=== PATIENT | female | born 1980 | race Caucasian/White ===

== ENCOUNTER 2019-06-17 13:24 | Emergency (ER) | payer BC, SELFPAY ==
[2019-06-17 13:33] VITALS: BP 128/81; PULSE 90; RESP 18; TEMP 37.4; O2SAT 100
--- NOTE | 2019-06-17 14:01 | ED.FEMALEGU ---
HPI - Female Genitourinary General Chief complaint: Urogenital-Female Stated complaint: Vaginal Problems Time Seen by Provider: 06/17/19 13:46 Source: patient, RN notes reviewed and old records reviewed Mode of arrival: ambulatory History of Present Illness HPI Narrative: Patient presents today complaining of an approximately 1 month history of external vaginal irritation, white vaginal discharge, pelvic pain. She was seen by her [employer]QU[employer] COMMISSIONER, Dr. Jermaine Meraz on 05/23/19. A vaginal swab was collected at that time. Report reviewed, shows no Desiree, gonorrhea, or chlamydia detected. She was possible bacterial vaginosis. Patient was subsequently treated after her doctor's appointment with a dose of Diflucan and nystatin/triamcinolone ointment. States the Diflucan helped for a few days, but symptoms returned. States she has not herself received a phone call regarding her test results. She is unable to contact her doctor. They are closed due to pandemic. MD elicited complaint: vaginal discharge Related Data Home Medications Medication Instructions Recorded Confirmed clonazepam 1 mg/kg PO DAILY 06/17/19 06/17/19 Allergies Allergy/AdvReac Type Severity Reaction Status Date / Time No Known Allergies Allergy Verified 05/23/19 12:28 Review of Systems Review of Systems: Narrative: CONSTITUTIONAL: Denies body aches, fever, chills, or sweats. EYES: Denies visual changes, redness, or discharge. ENT: Denies rhinorrhea, congestion, sore throat, or otalgia. CARDIOVASCULAR: Denies chest pain, palpitations, or edema. RESPIRATORY: Denies cough or dyspnea. GASTROINTESTINAL: Denies abdominal pain, nausea, vomiting, or diarrhea. GENITOURINARY: Denies dysuria or hematuria.+ Vaginal discharge, pelvic pain, vaginal irritation SKIN: Denies rash, itching, or wounds. MUSCULOSKELETAL: Denies back pain, joint pain, or myalgia. NEUROLOGIC: Denies headache, numbness, tingling, or weakness. PSYCH: Denies depression or anxiety. [facility] Social History Social History Smoking status: Former smoker Comments At time of signature, I have reviewed and agree with nursing past medical, surgical, social and family history unless otherwise noted. Please see nursing chart for further information. There is no relevant family history pertinent to the presenting complaint Exam Narrative: Exam Narrative: GENERAL: Well-appearing, well-nourished, and in no acute distress. HEAD: Normocephalic, atraumatic. EYES: EOMI. No redness or drainage. Conjunctivae normal. ENT: Mucous membranes pink and moist. NECK: Normal AROM. Supple. No lymphadenopathy. CHEST: No respiratory distress. Clear to auscultation. : External vulvar erythema, mild edema and excoriation. Thick white vaginal discharge noted. MUSCULOSKELETAL: No bony tenderness. EXTREMITIES: Normal range of motion. No edema. SKIN: Warm, dry, no rash. NEURO: No focal deficits. Alert and oriented x3. Gait steady. PSYCH: Normal affect. No signs of depression or anxiety. Course Vital Signs Vital signs: Vital Signs Temperature 99.3 F 06/17/19 13:33 Pulse Rate 90 06/17/19 13:33 Respiratory Rate 18 06/17/19 13:33 Blood Pressure 128/81 06/17/19 13:33 Pulse Oximetry 100 06/17/19 13:33 Temperature 99.3 F 06/17/19 13:33 Pulse Rate 90 06/17/19 13:33 Respiratory Rate 18 06/17/19 13:33 Blood Pressure 128/81 06/17/19 13:33 Pulse Oximetry 100 06/17/19 13:33 Reviewed. Pt has been instructed to follow up with her PCP regarding her elevated blood pressure today. MDM - Female Genitourinary Differential Diagnosis Differential diagnosis: Likely urinary tract infection, bacterial vaginosis, vaginitis and cystitis Medical Records Attestation: I reviewed the patient's medical records. Lab Data Attestation: I reviewed the patient's lab results. Labs: Urine Glucose Negative Reference Range: Negative
== END 2019-06-17 14:08 | disposition home or self-care (01) ==
PROVIDERS: Emergency Provider Nurse Practitioner; PCP Internal Medicine
DX: N76.0 Acute vaginitis (principal); M79.7 Fibromyalgia; N80.9 Endometriosis, unspecified
CPT/HCPCS: 81003; 99212; G0463

== ENCOUNTER 2020-12-21 08:18 | Emergency (ER) | payer BC, SELFPAY ==
[2020-12-21 08:26] VITALS: BP 152/98; PULSE 108; RESP 18; TEMP 36.4; O2SAT 100
--- NOTE | 2020-12-21 08:47 | ED.LOWEXIN ---
HPI - Extremity Injury (Lower) General Chief Complaint: Extremity Injury, Lower Stated Complaint: Hands numb,painful Time Seen by Provider: 12/21/20 08:29 History of Present Illness HPI Narrative: Patient presents with bilateral hand pain. Patient ports that is been present for the past 4 days of been intermittent. Reports to feel like her fingers are swollen reports pain on her fingertips. She notes her symptoms most in the morning pain her symptoms started after she was cleaning out cold water from a cooler. She also reports paresthesias along the ulnar aspect of her hand and forearm. Reports a history of fibromyalgia reports has not had symptoms like this before. Patient reports she is currently without symptoms Related Data Allergies Allergy/AdvReac Type Severity Reaction Status Date / Time No Known Allergies Allergy Verified 12/21/20 08:29 Review of Systems Review of Systems: CONSTITUTIONAL: Denies fever, chills, or sweats. EYES: Denies visual changes, redness, or discharge. ENT: Denies rhinorrhea, congestion, sore throat, or otalgia. CARDIOVASCULAR: Denies chest pain, palpitations, or edema. RESPIRATORY: Denies cough or dyspnea. GASTROINTESTINAL: Denies abdominal pain, nausea, vomiting, or diarrhea. GENITOURINARY: Denies dysuria or hematuria. SKIN: Denies rash or itching. MUSCULOSKELETAL: Denies back pain, joint pain, or myalgia. NEUROLOGIC: Denies headache, numbness, dizziness, or weakness. PSYCHIATRIC: Denies anxiety or depression. All systems reviewed & are unremarkable except as noted in HPI and below PMFSH Past Medical History Medical History (Updated 12/21/20 @ 08:52 by Jerome Berman MD) Anemia Anxiety Fibromyalgia Surgical History Surgical History H/O breast biopsy History of appendectomy History of endometrial ablation S/P laparoscopic hysterectomy Family History Family History Grandparent Acute myocardial infarction Sibling Diabetes mellitus Social History Social History Smoking status: Never smoker Alcohol intake: never Substance use: never Exam Narrative: GENERAL: Well-appearing, well-nourished, and in no acute distress. HEAD: Normocephalic, atraumatic. EYES: PERRLA and EOMI. ENT: Nares clear, no rhinorrhea or epistaxis. Mucous membranes moist. NECK: Supple. No masses. No JVD EXTREMITIES: Normal range of motion. No pitting edema in the bilateral hands. SKIN: Warm, dry, no rash. NEURO: No focal deficits. 5 out of 5 strength in the hand and with road patcher, abduction, opposition. Sensation intact to light touch in the bilateral hands alert and oriented x3. PSYCH: Normal mood and affect. Course Vital Signs Vital signs: Vital Signs Temperature 36.4 C 12/21/20 08:26 Pulse Rate 108 H 12/21/20 08:26 Respiratory Rate 18 12/21/20 08:26 Blood Pressure 152/98 H 12/21/20 08:26 Pulse Oximetry 100 12/21/20 08:26 Temperature 36.4 C 12/21/20 08:26 Pulse Rate 108 H 12/21/20 08:26 Respiratory Rate 18 12/21/20 08:26 Blood Pressure 152/98 H 12/21/20 08:26 Pulse Oximetry 100 12/21/20 08:26 MDM - Extremity Injury (Lower) MDM Narrative Medical decision making narrative: H&P as above, vss, pt looks clinically well, exam without deformity or focal neurological compromise, labs/img considered. symptomatic relief available as needed, on reevaluation pt continues to looks clinically well. Symptoms remain of unclear etiology there is no trauma so there is low concern for fracture or dislocation. Exam is reassuring low concern for major neurovascular compromise. Symptoms may represent new onset Raynaud's versus ulnar nerve pathology, with a reassuring exam patient is appropriate for continued outpatient monitoring and work-up with primary care doctor. plan to tx/monitor as op w/ pcm f/u findings/plan di
== END 2020-12-21 09:07 | disposition home or self-care (01) ==
PROVIDERS: Emergency Provider Emergency Medicine; PCP Internal Medicine
DX: R20.2 Paresthesia of skin (principal); M79.7 Fibromyalgia; Z86.2 Personal history of diseases of the blood and blood-forming organs and certain disorders involving the immune mechanism
CPT/HCPCS: 99281

== ENCOUNTER 2021-07-06 10:24 | Emergency (ER) | payer BC, SELFPAY ==
--- NOTE | ~2021-07-06 | XR_ITS ---
EXAMINATION: XR lumbar spine 2-3V EXAM DATE: 07/06/2021 10:58 INDICATION: Midline ttp for 4 days. ttp on t-11 and t-12 . TECHNIQUE: Lumber spine frontal, lateral, lateral L5-S1 projections for interpretation. Comparison is made to prior examination from 06/17/2018. FINDINGS: Mild disc disease at T12-L1 and L1-2. Mild diffuse loss of the L1 vertebral body height, mi ld chronic compression appears unchanged. Mild lower lumbar facet arthropathy. There are no acute fra ctures identified. The vertebral bodies are aligned in the AP dimension. Paraspinal soft tissue is un remarkable. Sacrum, sacroiliac joints, sacral arcuate lines are intact. There is no significant inter milvia change. IMPRESSION: Mild chronic L1 compression and thoracolumbar disc disease. No acute findings. Reviewed, dictated and finalized at location A. IMPRESSION: Mild chronic L1 compression and thoracolumbar disc disease. No acut e findings.
[2021-07-06 10:31] VITALS: BP 139/88; PULSE 102; RESP 16; TEMP 37.6; O2SAT 100
--- NOTE | 2021-07-06 10:55 | PC.NURSE ---
Pt in X ray at this time
[2021-07-06] MEDS: KETOROLAC 30 MG/ML VIAL (*BKC) IM (10:57)
[2021-07-06] MEDS: CYCLOBENZAPRINE HCL 10 MG TABLET PO (10:59)
--- NOTE | 2021-07-06 11:11 | ED.BACK ---
HPI - Back Pain/Injury General Chief Complaint: Back Pain/Injury Stated Complaint: back pain Time Seen by Provider: 07/06/21 10:26 Source: patient History of Present Illness HPI Narrative: Patient presents with back pain. Reports she struck her back on the armrest a few days ago over the next few days she has had increasing pain this morning she is having a hard time moving so she came to the ER for evaluation. Her pain is primarily in her upper lower back radiates bilaterally is achy, constant, worse with any sort of movement of the torso. Denies any bowel or bladder incontinence denies any focal numbness or weakness. She denies any recent spinal instrumentation, major changes in weight, IV drug use. Related Data Allergies Allergy/AdvReac Type Severity Reaction Status Date / Time No Known Allergies Allergy Verified 07/06/21 10:35 Review of Systems Review of Systems: CONSTITUTIONAL: Denies fever, chills, or sweats. EYES: Denies visual changes, redness, or discharge. ENT: Denies rhinorrhea, congestion, sore throat, or otalgia. CARDIOVASCULAR: Denies chest pain, palpitations, or edema. RESPIRATORY: Denies cough or dyspnea. GASTROINTESTINAL: Denies abdominal pain, nausea, vomiting, or diarrhea. GENITOURINARY: Denies dysuria or hematuria. SKIN: Denies rash or itching. MUSCULOSKELETAL: Denies joint pain, or myalgia. NEUROLOGIC: Denies headache, numbness, dizziness, or weakness. PSYCHIATRIC: Denies anxiety or depression. All systems reviewed & are unremarkable except as noted in HPI and below PMFSH Past Medical History Medical History (Updated 07/06/21 @ 11:33 by Jerome Berman MD) Anemia Anxiety Fibromyalgia Surgical History Surgical History H/O breast biopsy History of appendectomy History of endometrial ablation S/P laparoscopic hysterectomy Family History Family History Grandparent Acute myocardial infarction Sibling Diabetes mellitus Social History Social History Smoking status: Never smoker Alcohol intake: never Substance use: never Exam Narrative: GENERAL: Well-appearing, well-nourished, and in no acute distress. HEAD: Normocephalic, atraumatic. EYES: PERRLA and EOMI. ENT: Nares clear, no rhinorrhea or epistaxis. Mucous membranes moist. NECK: Supple. No masses. No JVD ABDOMEN: Soft, nontender, nondistended, normal active bowel sounds. BACK: Midline tenderness noted along spinous process T11 and T12 there is otherwise diffuse tenderness to the lower back. There is no obvious deformity or step-offs no open or draining wounds no ecchymoses. EXTREMITIES: Normal range of motion. No edema. SKIN: Warm, dry, no rash. NEURO: No focal deficits. 2+ knee reflexes symmetric bilaterally alert and oriented x3. PSYCH: Normal mood and affect. Course Reevaluation(s) Reevaluation #1: Patient with some improvement in her symptoms after Toradol. Results reviewed with patient. Patient is comfortable outpatient plan. Date: 07/06/21 Time: 11:31 Vital Signs Vital signs: Vital Signs Temperature 37.6 C H 07/06/21 10:31 Pulse Rate 102 H 07/06/21 10:31 Respiratory Rate 16 07/06/21 10:31 Blood Pressure 139/88 07/06/21 10:31 Pulse Oximetry 100 07/06/21 10:31 Temperature 37.6 C H 07/06/21 10:31 Pulse Rate 81 07/06/21 11:53 Respiratory Rate 16 07/06/21 11:53 Blood Pressure 117/67 07/06/21 11:53 Pulse Oximetry 100 07/06/21 11:53 MDM - Back Pain/Injury MDM Narrative Medical decision making narrative: H&P as above, vss, pt looks clinically well, exam without focal neurological deficits there is midline tenderness, imaging without acute process, additional labs/img considered, symptomatic relief available as needed, on reevaluation pt continues to looks clinically well. Suspect exacerbation of mild disc disease from inj
[2021-07-06 11:53] VITALS: BP 117/67; PULSE 81; RESP 16; O2SAT 100
== END 2021-07-06 11:53 | disposition home or self-care (01) ==
PROVIDERS: Emergency Provider Emergency Medicine; PCP Internal Medicine
DX: S39.92XA Unspecified injury of lower back, initial encounter (principal); Z86.2 Personal history of diseases of the blood and blood-forming organs and certain disorders involving the immune mechanism; M79.7 Fibromyalgia; M51.9 Unspecified thoracic, thoracolumbar and lumbosacral intervertebral disc disorder; W22.8XXA Striking against or struck by other objects, initial encounter
CPT/HCPCS: 72100; 96372; 99283; A9270; J1885

== ENCOUNTER 2022-05-16 07:58 | Outpatient (CLI) | payer BC, SELFPAY ==
--- NOTE | ~2022-05-16 | US_ITS ---
EXAMINATION: US pelvic complete w TV DATE: 05/16/2022 08:55 INDICATION: Pelvic and perineal pain, history of hysterectomy and right oophorectomy TECHNIQUE: Multiple transabdominal and endovaginal sonographic images of the pelvis were obtained. COMPARISON: None. FINDINGS: The uterus is surgically absent. The right ovary is surgically absent. No right adnexal abn ormality is seen. The left ovary measures 2.9 x 2.3 x 3.4 cm. There is normal vascular flow in the le ft ovary. There is no free fluid in the pelvis. IMPRESSION: 1. No sonographic correlate for the patient's symptoms. Reviewed, dictated and finalized at location B. ITUTION LIBRARIAN
--- NOTE | ~2022-05-16 | MMUS_ITS ---
EXAMINATION: MM diagnostic quan BI w maddie, US breast BI complete HISTORY: Intermittent left breast lump for 2 months. Patient could not feel the lump today. TECHNIQUE: ML, MLO and CC 3-D tomosynthesis images of both breasts were performed and synthetic 2-D i mages were generated. CAD analysis was submitted and interpreted. High resolution complete bilateral breast ultrasound examination including all 4 quadrants and subareolar areas was performed. COMPARISON: None BREAST PARENCHYMAL COMPOSITION: The breasts are heterogeneously dense, which may obscure small masses . FINDINGS: MAMMOGRAPHIC FINDINGS: No suspicious mass or architectural distortion, malignant calcification, skin thickening or retractio n is detected. The heterogeneously dense stroma may obscure breast masses. Bilateral complete breast ultrasound exam ination was performed. ULTRASOUND: Right breast: No suspicious mass or shadowing, cyst or other sylvian sonographic abnormality of the r ight breast. Left breast: There is a parallel circumscribed relatively sonolucent area measuring approximately 2.3 mm depth by 8 x 10 mm, without internal vascularity or posterior shadowing, benign in appearance. No suspicious mass or shadowing of the left breast or other significant sonographic finding. IMPRESSION: 1. No mammographic evidence of malignancy 2. Routine mammographic screening is recommended. BI-RADS Category 2: Benign finding(s). Reviewed, dictated and finalized at location A. SION PHARMACIST IMPRESSION: 1. No mammographic evidence of malignancy 2. Routine mammographic screening is recommended. BI-RADS Category 2: Benign finding(s).
== END 2022-05-16 07:59 ==
LOC: MICIMG 08:00
PROVIDERS: Visit Provider Obstetrics & Gynecology
DX: R10.2 Pelvic and perineal pain (principal); N63.20 Unspecified lump in the left breast, unspecified quadrant; R92.2 Inconclusive mammogram
CPT/HCPCS: 76641; 76830; 76856; 77062; 77066; G0279

== ENCOUNTER 2022-08-05 10:31 | Emergency (ER) | payer BC, SELFPAY ==
[2022-08-05 10:33] VITALS: BP 151/94; RESP 16; TEMP 36.3; O2SAT 100
--- NOTE | 2022-08-05 10:36 | ECG_ITS ---
Measurements Intervals [place] Rate: 82 P: 63 MA: 159 QRS: 37 QRSD: 90 T: 34 QT: 357 QTc: 419 Interpretive Statements SINUS RHYTHM POSSIBLE LEFT ATRIAL ENLARGEMENT INCOMPLETE RIGHT BUNDLE BRANCH BLOCK BORDERLINE ECG NO PREVIOUS ECG AVAILABLE FOR COMPARISON Electronically Signed On 08-05-2022 11:54:33 CDT by Bruno Reid D.O.
--- NOTE | 2022-08-05 12:08 | ED.NECK ---
HPI - Neck Pain/Injury General Chief Complaint: Neck Pain/Injury Stated Complaint: Body Ache Time Seen by Provider: 08/05/22 11:44 History of Present Illness HPI Narrative: This is a 41-year-old female who denies significant past medical history, presenting to the emergency department complaining of left-sided neck pain and muscle spasm for the past day. The patient states she lifts boxes regularly for work. She denies any recent trauma. She complains of primarily left side neck pain, described as cramping and rated 6/10. She denies weakness or numbness in the arm Related Data Allergies Allergy/AdvReac Type Severity Reaction Status Date / Time No Known Allergies Allergy Verified 08/05/22 11:06 Review of Systems Review of Systems: CONSTITUTIONAL: Denies fever, chills, or sweats. CARDIOVASCULAR: Denies chest pain, palpitations, or edema. RESPIRATORY: Denies cough or dyspnea. GASTROINTESTINAL: Denies abdominal pain, nausea, vomiting, or diarrhea. GENITOURINARY: Denies dysuria or hematuria. MUSCULOSKELETAL: Left-sided neck pain denies back pain, joint pain, or myalgia. NEUROLOGIC: Denies headache, numbness, dizziness, or weakness. PSYCHIATRIC: Denies anxiety or depression. [facility] Past Medical History Medical History Anemia Anxiety Fibromyalgia Surgical History Surgical History H/O breast biopsy History of appendectomy History of section History of endometrial ablation S/P laparoscopic hysterectomy Family History Family History Grandparent Acute myocardial infarction Sibling Diabetes mellitus Social History Social History Smoking status: Unknown if ever smoked Alcohol intake: current Alcohol use details: Rare Substance use: never Lack of Transportation: No Lack of Food: Never True Current Housing: I Have Housing Concerned About Future Housing: No Difficulty Paying Gas/Electric Bills: No Difficulty Paying for Meds: No Currently Unemployed: No Living arrangements: with family Occupation/Education: occupation Gender identity (if verbalized by the patient): Female Sexual Orientation (if Verbalized by the Patient): Straight or Heterosexual Spiritual care concerns: No Exam Narrative: GENERAL: Well-developed, well-nourished, and in no acute distress. HEAD: Normocephalic, atraumatic. EYES: PERRLA and EOMI. NECK: Paraspinal muscle spasm, extending to the left trapezius. ROM intact though slowed by pain No adenopathy or masses. No carotid bruits or JVD. No midline spine tenderness to palpation, no step-off or crepitus CHEST: Clear to auscultation. No respiratory distress. No wheezes rales or rhonchi HEART: Regular rate and rhythm. No murmur heard. Normal peripheral pulses. ABDOMEN: Soft, nontender, nondistended, normal active bowel sounds. EXTREMITIES: Normal range of motion. No edema. SKIN: Warm, dry, no rash. NEURO: No focal deficits. Alert and oriented x3. Strength 5/5 in all extremities, sensation intact bilaterally PSYCH: Normal mood and affect. Course Course Emergency Course: 12:08 - The patient's exam is not concerning for midline spine injury. Her exam is consistent with muscle spasm. We will treat with topical lidocaine, muscle relaxers and discharged with primary care follow-up. Discussed return and emergent precautions including signs/symptoms of neurovascular compromise. Patient voiced understanding and is comfortable with the plan. All questions answered to her satisfaction. Vital Signs Vital signs: Vital Signs Temperature 97.3 F L 08/05/22 10:33 Respiratory Rate 16 08/05/22 10:33 Blood Pressure 151/94 H 08/05/22 10:33 Pulse Oximetry 100 08/05/22 10:33 Oxygen Delivery Room Air 08/05/22 10:33 [place]
[2022-08-05] MEDS: ACETAMINOPHEN 500 MG TABLET 1000 MG PO (12:11)
[2022-08-05] MEDS: LIDOCAINE 5% PATCH 1 PATCH TRANSDERM (12:12)
[2022-08-05] MEDS: CYCLOBENZAPRINE HCL 5 MG TABLET PO (12:12)
[2022-08-05 12:19] VITALS: PULSE 74; RESP 16; O2SAT 99
== END 2022-08-05 12:20 | disposition home or self-care (01) ==
PROVIDERS: Emergency Provider Preventive Medicine Aerospace Medicine
DX: M54.2 Cervicalgia (principal); M62.838 Other muscle spasm; Z90.710 Acquired absence of both cervix and uterus
CPT/HCPCS: 93005; 99283; A9270

== ENCOUNTER 2022-10-14 07:55 | Emergency (ER) | payer OTHER, BC, SELFPAY ==
--- NOTE | ~2022-10-14 | CT_ITS ---
CT of the Abdomen and Pelvis: Indication: Abdominal pain Technique: 2.5 mm axial scans were obtained through the abdomen and pelvis following intravenous adm inistration of 100 cc of Omnipaque 350. Dose reduction technique was used on this scan by utilizing a utomated exposure control and iterative reconstruction technique. The dose-length product (DLP) was 4 44.76 mGy-cm. Findings: Scans through the lung bases are unremarkable. The liver, spleen, pancreas, gallbladder, adrenals and kidneys are within normal limits. No evidence of aortic aneurysm. No lymphadenopathy. No bowel obstruction or bowel wall thickening. There is no evidence to suggest acute appendicitis. Images through the pelvis were performed. Urinary bladder unremarkable. 1.7 cm left ovarian cyst is o f doubtful clinical significance. No other adnexal mass seen. No ascites. Impression: No significant abnormalities seen. Reviewed, dictated and finalized at [facility]. Impression: No significant abnormalities seen.
[2022-10-14 07:58] VITALS: BP 134/88; PULSE 88; RESP 14; TEMP 37.3; O2SAT 100
[2022-10-14 08:26] LABS: Basophils Percent Auto 0.4 % (0.2-1.2); Eosinophils Absolute Auto 0.1 K/mm3 (0-0.3); Eosinophils Percent Auto 1.5 % (0-4.4); Hematocrit 38.6 % (37.0-47.0); Hemoglobin 12.3 g/dL (12.0-15.0); Immature Granulocyte Absolute 0.01 K/mm3 (0.00-0.031); Immature Granulocyte Percent A 0.2 % (0-0.5); Lymphocytes Absolute Auto 1.24 K/mm3 (0.9-3.2); Lymphocytes Percent Auto 27.4 % (18.3-44.2); Mean Corpuscular HGB Conc 31.9 g/dl (32-36); Mean Corpuscular Hemoglobin 26.5 pg (26-34); Mean Corpuscular Volume 83.2 fl (80-100); Mean Platelet Volume 8.7 fl (7.4-10.4); Monocytes Absolute Auto 0.6 K/mm3 (0.1-0.6); Monocytes Percent Auto 12.1 % (2.6-8.5); Neutrophils Absolute Auto 2.6 K/mm3 (1.3-6.7); Neutrophils Percent Auto 58.4 % (45.5-73.1); Platelet Count Result 191 k/mm3 (150-375); Red Blood Count 4.64 M/mm3 (4.2-5.4); Red Cell Distribution Width 15.8 % (11.5-14.5); White Blood Count 4.5 K/mm3 (4.5-10.0)
[2022-10-14 08:31] VITALS: BP 129/90; PULSE 84; RESP 14
[2022-10-14 08:32] LABS: Alanine Aminotransferase 18 U/L (6-35); Albumin Level 4.1 g/dL (3.5-5.1); Alkaline Phosphatase 54 U/L (38-126); Anion Gap 5 mmol/L (8-16); Aspartate Amino Transferase 24 U/L (14-36); Bilirubin,Total 0.8 mg/dL (0.2-1.3); Blood Urea Nitrogen 12 mg/dL (7-17); Calcium 8.5 mg/dL (8.4-10.2); Carbon Dioxide 27 mmol/L (22-30); Chloride 107 mmol/L (98-107); Estimated CRCL calculation 85 ml/min; Estimated Glomerular Filt Rate > 60; Glucose 101 mg/dL (65-110); Potassium 3.6 mmol/L (3.4-5.0); Sodium 139 mmol/L (137-145)
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
[2022-10-14] MEDS: KETOROLAC 15 MG/ML VIAL (*BKC) IV PUSH (09:34)
[2022-10-14 09:35] VITALS: BP 131/92; PULSE 79; RESP 16; O2SAT 100
== END 2022-10-14 09:50 | disposition home or self-care (01) ==
PROVIDERS: Emergency Provider Emergency Medicine; PCP Family Medicine
DX: M79.7 Fibromyalgia (principal); Z86.2 Personal history of diseases of the blood and blood-forming organs and certain disorders involving the immune mechanism; Z90.710 Acquired absence of both cervix and uterus; Z87.891 Personal history of nicotine dependence; V47.5XXA Car driver injured in collision with fixed or stationary object in traffic accident, initial encounter
CPT/HCPCS: 36415; 74177; 80053; 85025; 96374; 99284; J1885; Q9967

== ENCOUNTER 2022-11-07 09:09 | Outpatient (CLI) | payer OTHER, SELFPAY ==
[2022-11-07 18:14] LABS: Basophils Percent Auto 0.7 % (0.2-1.2); Eosinophils Percent Auto 0.9 % (0-4.4); Hematocrit 40.7 % (37.0-47.0); Hemoglobin 12.8 g/dL (12.0-15.0); Immature Granulocyte Absolute 0.01 K/mm3 (0.00-0.031); Immature Granulocyte Percent A 0.2 % (0-0.5); Lymphocytes Absolute Auto 1.07 K/mm3 (0.9-3.2); Lymphocytes Percent Auto 25.1 % (18.3-44.2); Mean Corpuscular HGB Conc 31.4 g/dl (32-36); Mean Corpuscular Hemoglobin 26.6 pg (26-34); Mean Corpuscular Volume 84.6 fl (80-100); Mean Platelet Volume 9.7 fl (7.4-10.4); Monocytes Absolute Auto 0.6 K/mm3 (0.1-0.6); Monocytes Percent Auto 12.9 % (2.6-8.5); Neutrophils Absolute Auto 2.6 K/mm3 (1.3-6.7); Neutrophils Percent Auto 60.2 % (45.5-73.1); Platelet Count Result 180 k/mm3 (150-375); Red Blood Count 4.81 M/mm3 (4.2-5.4); Red Cell Distribution Width 15.2 % (11.5-14.5); White Blood Count 4.3 K/mm3 (4.5-10.0)
[2022-11-07 18:28] LABS: Alanine Aminotransferase 15 U/L (6-35); Albumin Level 4.3 g/dL (3.5-5.1); Alkaline Phosphatase 52 U/L (38-126); Anion Gap 8 mmol/L (8-16); Aspartate Amino Transferase 22 U/L (14-36); Bilirubin,Total 0.6 mg/dL (0.2-1.3); Blood Urea Nitrogen 13 mg/dL (7-17); Calcium 8.7 mg/dL (8.4-10.2); Carbon Dioxide 26 mmol/L (22-30); Chloride 105 mmol/L (98-107); Cholesterol 162 mg/dL (0-200); Estimated Glomerular Filt Rate > 60; Glucose 97 mg/dL (65-110); HDL Direct 62 mg/dL; Potassium 4.3 mmol/L (3.4-5.0); Sodium 139 mmol/L (137-145); Triglycerides 33 mg/dL (<150)
[2022-11-07 18:33] LABS: Hemoglobin A1C 5.6 % (<5.7)
[2022-11-07 18:34] LABS: Iron 73 ug/dL (37-170)
[2022-11-07 18:40] LABS: LDL Cholesterol Direct 83 mg/dL
[2022-11-07 18:48] LABS: Percent Iron Saturation 18 % (20-50)
[2022-11-07 19:12] LABS: Ferritin 4.99 ng/mL (6.24-137)
[2022-11-07 19:37] LABS: Folic Acid 11.2 ng/mL (2.76->20)
== END 2022-11-07 09:10 | disposition home or self-care (01) ==
LOC: ANHGOSHLAB 09:11
PROVIDERS: PCP Family Medicine; Visit Provider Family Medicine
DX: Z13.220 Encounter for screening for lipoid disorders (principal); R53.83 Other fatigue; D50.9 Iron deficiency anemia, unspecified; Z13.228 Encounter for screening for other metabolic disorders; Z13.29 Encounter for screening for other suspected endocrine disorder; R73.9 Hyperglycemia, unspecified
CPT/HCPCS: 36415; 80053; 80061; 82607; 82728; 82746; 83036; 83540; 83550; 84443; 85025

== ENCOUNTER 2022-11-14 18:16 | Emergency (ER) | payer BC, SELFPAY ==
--- NOTE | ~2022-11-14 | CT_ITS ---
EXAMINATION: CT abdomen pelvis w con DATE: 11/14/2022 22:50 INDICATION: abdominal pain TECHNIQUE: Computed tomography (CT) of the abdomen and pelvis was performed with 100 mL Omnipaque-350 intravenous contrast. Automated exposure control and iterative reconstruction technique were employe d. The dose-length product was 474.14 mGy-cm. COMPARISON: 10/14/2022. FINDINGS: Lower thorax: Unremarkable Liver: Periportal edema. Biliary/Gallbladder: Cholelithiasis. No bile duct dilation. Pancreas: No mass or duct dilation. Spleen: Normal. Adrenals:No mass. Kidneys: No mass, stone, or hydronephrosis. GI tract: Moderate distal esophageal and gastric wall edema. No small or large bowel dilation. The ap pendix is not confidently identified. Mesentery/Peritoneum: No ascites, mass, or free air. Retroperitoneum: No mass. Pelvis: Absent uterus. Marked urinary bladder wall edema. Soft Tissues: Soft tissues and body wall unremarkable. Bones: No acute osseous finding. IMPRESSION: Moderate esophagitis/gastritis. Severe cystitis. Reviewed, dictated and finalized at location K.
[2022-11-14 18:25] VITALS: BP 154/96; PULSE 101; RESP 21; TEMP 37.1; O2SAT 99
[2022-11-14 18:40] LABS: Basophils Percent Auto 0.3 % (0.2-1.2); Eosinophils Percent Auto 0.5 % (0-4.4); Hematocrit 38.9 % (37.0-47.0); Hemoglobin 12.3 g/dL (12.0-15.0); Immature Granulocyte Absolute 0.02 K/mm3 (0.00-0.031); Immature Granulocyte Percent A 0.3 % (0-0.5); Lymphocytes Absolute Auto 1.35 K/mm3 (0.9-3.2); Lymphocytes Percent Auto 17.7 % (18.3-44.2); Mean Corpuscular HGB Conc 31.6 g/dl (32-36); Mean Corpuscular Hemoglobin 27.2 pg (26-34); Mean Corpuscular Volume 85.9 fl (80-100); Mean Platelet Volume 8.3 fl (7.4-10.4); Monocytes Absolute Auto 0.7 K/mm3 (0.1-0.6); Monocytes Percent Auto 8.7 % (2.6-8.5); Neutrophils Absolute Auto 5.5 K/mm3 (1.3-6.7); Neutrophils Percent Auto 72.5 % (45.5-73.1); Platelet Count Result 224 k/mm3 (150-375); Red Blood Count 4.53 M/mm3 (4.2-5.4); Red Cell Distribution Width 15.4 % (11.5-14.5); White Blood Count 7.6 K/mm3 (4.5-10.0)
[2022-11-14 18:54] LABS: Alanine Aminotransferase 17 U/L (6-35); Albumin Level 4.2 g/dL (3.5-5.1); Alkaline Phosphatase 55 U/L (38-126); Anion Gap 5 mmol/L (8-16); Aspartate Amino Transferase 21 U/L (14-36); Bilirubin,Total 0.4 mg/dL (0.2-1.3); Blood Urea Nitrogen 11 mg/dL (7-17); Calcium 8.9 mg/dL (8.4-10.2); Carbon Dioxide 26 mmol/L (22-30); Chloride 106 mmol/L (98-107); Estimated CRCL calculation 84 ml/min; Estimated Glomerular Filt Rate > 60; Glucose 113 mg/dL (65-110); Lipase 161 U/L (23-300); Potassium 3.4 mmol/L (3.4-5.0); Sodium 137 mmol/L (137-145)
[2022-11-14 19:13] LABS: Bacteria Urine 1+ /hpf; Need Manual Microscopic Reviewed; Non Pathogenic Casts 0-2; RBC Urine >100 /hpf (0-2); Squamous Epithelial Cell Urine None seen /hpf (Few); WBC Urine >100 /hpf
[2022-11-14 19:16] LABS: Appearance Urine Turbid (Clear); Bilirubin Urine 1+ (Negative); Blood Urine 3+ (Negative); Glucose Urine UA Negative (Negative); Ketones Urine Negative (Negative); Leukocyte Esterase Ur 2+ LEU/UL (Negative); Nitrate Urine Positive (Negative); Protein Urine 2+ mg/dL (Negative); Specific Grav Ur 1.021 (1.001-1.035); pH Urine 5.5 (5.0-9.0)
[2022-11-14 19:17] LABS: Color Urine Dark Yellow (Yellow)
[2022-11-14 19:23] LABS: Add Urine Microscopic? YES
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
[2022-11-14] MEDS: SODIUM CHLORIDE 0.9% IV 1,000 ML 999 ML IV CONT (21:31)
[2022-11-14] MEDS: HYDROmorphone HCL INJ (*CRX) 1 MG/ML SYR 0.5 MG IV PUSH (23:25)
[2022-11-14] MEDS: PHENAZOPYRIDINE HCL 100 MG TABLET 200 MG PO (23:25)
[2022-11-15 00:01] VITALS: BP 142/78; PULSE 89; RESP 17; O2SAT 99
== END 2022-11-15 02:09 | disposition home or self-care (01) ==
PROVIDERS: Emergency Provider Emergency Medicine
DX: N30.90 Cystitis, unspecified without hematuria (principal); M79.7 Fibromyalgia; Z86.2 Personal history of diseases of the blood and blood-forming organs and certain disorders involving the immune mechanism; Z90.710 Acquired absence of both cervix and uterus; Z87.891 Personal history of nicotine dependence; K29.70 Gastritis, unspecified, without bleeding; K20.90 Esophagitis, unspecified without bleeding; R10.30 Lower abdominal pain, unspecified
CPT/HCPCS: 36415; 74177; 80053; 81001; 81025; 83690; 85025; 87077; 87086; 87186; 96365; 96375; 99284; A9270; J0696; J1170; J7030; Q9967

== ENCOUNTER 2023-01-18 20:51 | Emergency (ER) | payer BC, SELFPAY ==
--- NOTE | ~2023-01-18 | CT_ITS ---
Non-contrast Head CT History: Headache Technique: Axial non-contrast imaging of the brain was performed. Dose reduction technique was used on this scan by utilizing automated exposure control and iterative reconstruction technique. The dose -length product (DLP) was 605.33 mGy-cm. Findings: There is no evidence of intracranial hemorrhage, mass lesion, or acute infarct. Brain par enchyma appears normal. The ventricles and subarachnoid spaces are normal in size. The calvarium ap pears normal. The visualized paranasal sinuses and mastoid air cells are clear. Impression: No significant abnormality seen. Reviewed, dictated and finalized at location . Impression: No significant abnormality seen.
[2023-01-18 20:59] VITALS: BP 153/99; PULSE 100; RESP 18; TEMP 37; O2SAT 100
--- NOTE | 2023-01-18 21:19 | ED.HA ---
HPI - Headache General Chief Complaint: Headache Stated Complaint: headache Time Seen by Provider: 01/18/23 21:00 Source: patient Mode of arrival: ambulatory Limitations: no limitations History of Present Illness HPI Narrative: This is a 42 year old female that presents to the ER for a headache. Ongoing over the last couple of days. Associated with nausea, vomiting, myalgias. Does report sick contacts at work. She took an anti-inflammatory an hour prior to arrival. Denies fever, visual changes, cough, congestion, abdominal pain, dysuria, focal numbness or weakness. Related Data Allergies Allergy/AdvReac Type Severity Reaction Status Date / Time No Known Allergies Allergy Verified 01/18/23 20:51 Review of Systems Review of Systems: CONSTITUTIONAL: Denies fever EYES: Denies visual changes ENT: Denies congestion, sore throat RESPIRATORY: Denies cough GASTROINTESTINAL: Reports nausea and vomiting. Denies abdominal pain GENITOURINARY: Denies dysuria MUSCULOSKELETAL: Reports myalgia. NEUROLOGIC: Reports headache. Denies numbness, or weakness. All systems reviewed & are unremarkable except as noted in HPI and below PMFSH Past Medical History Medical History Anemia Anxiety Fibromyalgia Surgical History Surgical History H/O breast biopsy History of appendectomy History of section History of endometrial ablation S/P laparoscopic hysterectomy Family History Family History Father Diabetes mellitus Hypertension Family history of primary malignant neoplasm of liver Mother Diabetes mellitus Hypertension Family history of diabetes mellitus in first degree relative Sibling Diabetes mellitus Grandparent Acute myocardial infarction Sibling Diabetes mellitus Father Hypertension Family history of diabetes mellitus in first degree relative Mother Hypertension Family history of diabetes mellitus in first degree relative Sibling Hypertension Family history of diabetes mellitus in first degree relative Other Cerebrovascular accident Family history of malignant neoplasm of breast Social History Social History Smoking status: Never smoker Smoking end date: 03/30/98 Alcohol intake: current Alcohol use details: Rare Substance use: never Lack of Transportation: No Lack of Food: Never True Current Housing: I Have Housing Concerned About Future Housing: No Difficulty Paying Gas/Electric Bills: No Difficulty Paying for Meds: No Currently Unemployed: No Education: Bachelor's Degree Living arrangements: with family Occupation/Education: occupation Gender identity (if verbalized by the patient): Female Sexual Orientation (if Verbalized by the Patient): Straight or Heterosexual Spiritual care concerns: No Exam Narrative: GENERAL: Well-appearing, well-nourished, and in no acute distress. HEAD: Normocephalic, atraumatic. EYES: PERRLA and EOMI. ENT: Nares clear, no rhinorrhea or epistaxis. Mucous membranes moist. Oropharynx without tonsillar hypertrophy exudate or other lesions. Bilateral TMs pearly leiva non-bulging NECK: Supple. No adenopathy or masses. Normal ROM CHEST: Clear to auscultation. No respiratory distress. No wheezes rales or rhonchi HEART: Regular rate and rhythm. No murmur heard. Normal peripheral pulses. EXTREMITIES: Normal range of motion. No edema. Strength equal in bilateral upper and lower extremities (5/5) SKIN: Warm, dry, no rash. NEURO: No focal deficits. Alert and oriented x3. Cranial nerves II through XII grossly intact PSYCH: Normal mood and affect Course Course Emergency Course: Patient resting comfortably. Updated on work-up Vital Signs Vital signs: Vital Signs Temperature 98.6 F 01/18/23 20:59 Pulse
[2023-01-18 21:30] VITALS: BP 148/91; PULSE 83; RESP 15; O2SAT 100
[2023-01-18 21:32] VITALS: O2SAT 100
[2023-01-18] MEDS: SODIUM CHLORIDE 0.9% IV 1,000 ML 999 ML IV CONT (21:37)
[2023-01-18] MEDS: ACETAMINOPHEN 500 MG TABLET 1000 MG PO (21:38)
[2023-01-18] MEDS: diphenhydrAMINE HCl INJ 50 MG/ML VIAL 25 MG IV PUSH (21:38)
[2023-01-18] MEDS: METOCLOPRAMIDE HCL INJ 10 MG/2 ML VIAL IV PUSH (21:38)
[2023-01-18 21:52] LABS: Basophils Percent Auto 0.3 % (0.2-1.2); Eosinophils Percent Auto 0.6 % (0-4.4); Hemoglobin 14.7 g/dL (12.0-15.0); Immature Granulocyte Absolute 0.01 K/mm3 (0.00-0.031); Immature Granulocyte Percent A 0.1 % (0-0.5); Lymphocytes Absolute Auto 1.25 K/mm3 (0.9-3.2); Lymphocytes Percent Auto 18.2 % (18.3-44.2); Mean Corpuscular Hemoglobin 28.3 pg (26-34); Mean Corpuscular Volume 88.5 fl (80-100); Mean Platelet Volume 8.9 fl (7.4-10.4); Monocytes Absolute Auto 0.7 K/mm3 (0.1-0.6); Monocytes Percent Auto 9.8 % (2.6-8.5); Neutrophils Absolute Auto 4.9 K/mm3 (1.3-6.7); Platelet Count Result 164 k/mm3 (150-375); Red Cell Distribution Width 16.9 % (11.5-14.5); White Blood Count 6.9 K/mm3 (4.5-10.0)
[2023-01-18 21:59] VITALS: O2SAT 99
[2023-01-18 22:01] VITALS: BP 144/85; O2SAT 100
[2023-01-18 22:02] VITALS: O2SAT 100
[2023-01-18 22:10] LABS: Influenza A QL RT-PCR Negative (Negative); Influenza B QL RT-PCR Negative (Negative); SARS-CoV-2 RNA PCR Negative (Negative)
[2023-01-18 22:18] LABS: Alanine Aminotransferase 18 U/L (6-35); Albumin Level 4.2 g/dL (3.5-5.1); Alkaline Phosphatase 56 U/L (38-126); Anion Gap 7 mmol/L (8-16); Aspartate Amino Transferase 19 U/L (14-36); Bilirubin,Total 0.7 mg/dL (0.2-1.3); Blood Urea Nitrogen 12 mg/dL (7-17); Calcium 8.9 mg/dL (8.4-10.2); Carbon Dioxide 24 mmol/L (22-30); Chloride 105 mmol/L (98-107); Creatine Kinase 70 U/L (30-135); Estimated CRCL calculation 94 ml/min; Estimated Glomerular Filt Rate > 60; Glucose 105 mg/dL (65-110); Potassium 3.8 mmol/L (3.4-5.0); Sodium 136 mmol/L (137-145)
[2023-01-19] MEDS: SODIUM CHLORIDE 0.9% IV 500 ML 999 ML IV CONT (00:23)
[2023-01-19 00:51] VITALS: BP 136/84; PULSE 84; RESP 16; O2SAT 99
== END 2023-01-19 01:14 | disposition home or self-care (01) ==
PROVIDERS: Emergency Provider Physician Assistant; PCP Family Medicine
DX: R51.9 Headache, unspecified (principal); Z20.822 Contact with and (suspected) exposure to COVID-19
CPT/HCPCS: 36415; 70450; 80053; 82550; 85025; 87636; 96361; 96374; 96375; 99284; A9270; J1200; J2765; J7030; J7040

== ENCOUNTER 2023-09-15 08:19 | Outpatient (CLI) | payer BC, SELFPAY ==
[2023-09-15 12:50] LABS: Basophils Percent Auto 0.7 % (0.2-1.2); Eosinophils Absolute Auto 0.1 K/mm3 (0-0.3); Eosinophils Percent Auto 1.6 % (0-4.4); Hematocrit 44.7 % (37.0-47.0); Hemoglobin 14.9 g/dL (12.0-15.0); Immature Granulocyte Absolute 0.01 K/mm3 (0.00-0.031); Immature Granulocyte Percent A 0.3 % (0-0.5); Lymphocytes Absolute Auto 0.88 K/mm3 (0.9-3.2); Lymphocytes Percent Auto 28.9 % (18.3-44.2); Mean Corpuscular HGB Conc 33.3 g/dl (32-36); Mean Corpuscular Volume 92.9 fl (80-100); Mean Platelet Volume 9.1 fl (7.4-10.4); Monocytes Absolute Auto 0.4 K/mm3 (0.1-0.6); Monocytes Percent Auto 11.5 % (2.6-8.5); Neutrophils Absolute Auto 1.7 K/mm3 (1.3-6.7); Platelet Count Result 169 k/mm3 (150-375); Red Blood Count 4.81 M/mm3 (4.2-5.4); Red Cell Distribution Width 13.7 % (11.5-14.5); White Blood Count 3.1 K/mm3 (4.5-10.0)
[2023-09-15 13:07] LABS: Alanine Aminotransferase 13 U/L (6-35); Albumin Level 4.7 g/dL (3.5-5.1); Alkaline Phosphatase 50 U/L (38-126); Anion Gap 8 mmol/L (4-12); Aspartate Amino Transferase 29 U/L (14-36); Blood Urea Nitrogen 13 mg/dL (7-17); Calcium 9.1 mg/dL (8.4-10.2); Carbon Dioxide 25 mmol/L (22-30); Chloride 107 mmol/L (98-107); Cholesterol 169 mg/dL (0-200); Estimated Glomerular Filt Rate > 60; Glucose 87 mg/dL (65-110); HDL Direct 63 mg/dL; Potassium 3.7 mmol/L (3.4-5.0); Sodium 140 mmol/L (137-145); Triglycerides 61 mg/dL (<150)
[2023-09-15 13:18] LABS: LDL Cholesterol Direct 87 mg/dL
[2023-09-15 13:39] LABS: Rapid Plasma Reagin Non-Reactive (NonReactive)
[2023-09-15 13:47] LABS: HIV 1/2 Ab P24 Ag Result Negative (Negative)
[2023-09-15 13:58] LABS: Vitamin B12 < 159.0 pg/mL (239-931)
[2023-09-15 14:13] LABS: Folic Acid 7.9 ng/mL (2.76->20)
[2023-09-15 14:39] LABS: Hepatitis B Surface Antigen Negative (Negative)
[2023-09-15 14:56] LABS: Hepatitis C Virus Antibody Negative (Negative)
[2023-09-15 19:39] LABS: Iron 134 ug/dL (37-170)
[2023-09-15 19:48] LABS: Percent Iron Saturation 55 % (20-50)
[2023-09-15 20:01] LABS: Vitamin D 25 Hydroxy 38.4 ng/mL
== END 2023-09-15 08:20 | disposition home or self-care (01) ==
LOC: ANHGOSHLAB 08:23
PROVIDERS: Student in an Organized Health Care Education/Training Program; PCP Family Medicine; Visit Provider Obstetrics & Gynecology
DX: D50.9 Iron deficiency anemia, unspecified (principal); E53.8 Deficiency of other specified B group vitamins; E55.9 Vitamin D deficiency, unspecified; Z13.228 Encounter for screening for other metabolic disorders; Z13.220 Encounter for screening for lipoid disorders; Z20.2 Contact with and (suspected) exposure to infections with a predominantly sexual mode of transmission; R53.83 Other fatigue
CPT/HCPCS: 36415; 80053; 80061; 82306; 82607; 82728; 82746; 83540; 83550; 85025; 86592; 86703; 86803; 87340; G0432

== ENCOUNTER 2023-11-02 15:29 | Outpatient (CLI) | payer BC, SELFPAY ==
--- NOTE | ~2023-11-02 | XR_ITS ---
XR hand RT min 3V Ordering provider: Ministerio Rivas DO History: . M79.641 - Pain in right hand . Comparison: None. FINDINGS: BONES: No acute fracture or dislocation. JOINT SPACES: Normal. SOFT TISSUES: Normal. IMPRESSION: No acute osseous abnormality right hand. Reviewed, dictated and finalized at location A.
--- NOTE | ~2023-11-02 | XR_ITS ---
XR hand LT min 3V Ordering provider: Ministerio Rivas DO History: . M79.642 - Pain in left hand . Comparison: None. FINDINGS: BONES: No acute fracture or dislocation. JOINT SPACES: Well maintained. SOFT TISSUES: Unremarkable. IMPRESSION: No acute osseous abnormality left hand. Reviewed, dictated and finalized at location A.
== END 2023-11-02 15:30 ==
PROVIDERS: PCP Family Medicine; Visit Provider Family Medicine
DX: M79.642 Pain in left hand (principal); M79.641 Pain in right hand
CPT/HCPCS: 73130

== ENCOUNTER 2024-01-31 19:13 | Emergency (ER) | payer BC, SELFPAY ==
[2024-01-31 19:16] VITALS: BP 130/84; PULSE 90; RESP 17; TEMP 36.6; O2SAT 97
--- NOTE | 2024-01-31 22:23 | PC.NURSE ---
This RN called to room patient 4x. No response from patient. LWBS-T.
== END 2024-01-31 22:20 | disposition left against medical advice (07) ==
LOC: ANHED 22:28
PROVIDERS: PCP Family Medicine
DX: R11.2 Nausea with vomiting, unspecified (principal)
CPT/HCPCS: 99199

== ENCOUNTER 2024-02-10 12:50 | Outpatient (CLI) | payer BC, SELFPAY ==
--- NOTE | ~2024-02-10 | MR_ITS ---
EXAMINATION: MR brain/brain stem wo con DATE: 02/10/2024 13:25 INDICATION: Hemiplegia. TECHNIQUE: Magnetic resonance imaging (MRI) of the brain and brainstem was performed without intraven ous contrast. COMPARISON: Brain MRI 04/13/2017, head CT 01/18/2023 FINDINGS: There is no intracranial hemorrhage, acute infarction, or abnormal intracranial mass lesion . The ventricles are normal in size. The orbits are normal. The paranasal sinuses are clear. The mast oid air cells are normal. IMPRESSION: 1. Normal brain. Reviewed, dictated and finalized at location A. [employer] IMPRESSION: 1. Normal brain.
== END 2024-02-10 12:51 | disposition home or self-care (01) ==
LOC: GOSHIMG 12:50
PROVIDERS: PCP Family Medicine; Visit Provider Family Medicine
DX: G81.90 Hemiplegia, unspecified affecting unspecified side (principal)
CPT/HCPCS: 70551

== ENCOUNTER 2024-03-07 12:17 | Emergency (ER) | payer BC, SELFPAY ==
--- NOTE | ~2024-03-07 | CT_ITS ---
EXAMINATION: CT thoracic lumbar wo con DATE: 03/07/2024 14:01 INDICATION: Back injury post fall TECHNIQUE: Computed tomography (CT) of the thoracic and lumbar spine was performed without intravenou s contrast. Automated exposure control and iterative reconstruction technique were employed. The dose -length product was 440.83 mGy-cm. COMPARISON: Lumbar spine radiographs dated 07/16/2021 FINDINGS: Thoracic spine: Alignment is normal. Vertebral body heights are normal. There are multiple Schmorl's nodes along many of the endplates from the inferior endplate of T7 through the inferior endplate of T11. No acute fra cture. Moderate disc height loss at T4-T5 and mild disc height loss at remaining levels from T3-T4 th rough T12-L1. Right paracentral disc protrusion at T10-T11 resulting in mild central canal stenosis a t this level. Moderate facet osteoarthritis on the right at T11-T12 with multilevel mild facet osteoa rthritis throughout much of the mandibular the thoracic spine. There is mild neural foraminal stenosi s on the right at T10-T11 and bilaterally at T11-T12. Visualized portion of the lungs are clear. No e vident pleural effusion or pneumothorax. Heart size is normal. Visualized portions of mediastinum are unremarkable. Lumbar spine: Minimal lumbar levocurvature. 6 mm retrolisthesis L5 on S1. Sagittal alignment is otherwise normal. L umbar vertebral body heights are normal. There is a few Schmorl's nodes along the superior endplates of L1-L3. No acute fracture. Visualized paravertebral soft tissues are unremarkable. Mild disc height loss at L1-L2 and L2-L3. Multilevel disc bulges resulting in minimal to mild central canal stenosis from L1-L2 through L5-S1. Lumbar facet osteoarthritis, mild to moderate bilaterally at L1-L2 and L2-L 3 and mild more caudal lumbar spine. There is also mild bilateral sacroiliac osteoarthritis. No inter milvia change since 10/14/2022 in a few likely benign small sclerotic lesions in the left posterior iliac spine. IMPRESSION: 1. Mild to moderate thoracic and mild lumbar spondylosis with no acute osseous abnormality. Reviewed, dictated and finalized at location A. [employer]
--- NOTE | ~2024-03-07 | CT_ITS ---
CT cervical spine wo con Ordering provider: Jose Carl PA-C History: . fall, back injury . Comparison: None. Technique: CT of the cervical spine was performed without contrast. Sagittal and coronal reformatted images were also obtained and reviewed. Automated exposure control and iterative reconstruction vicky hnique were employed. The dose-length product was 173.85 mGy-cm. FINDINGS: VERTEBRAE: No subluxation or acute fracture. The occipital condyles are intact. Sclerotic areas seen in the right lamina of C2. Follow-up advised. DISC SPACES: Normal. PARASPINOUS SOFT TISSUES: Normal. IMPRESSION: No acute osseous abnormality cervical spine. Reviewed, dictated and finalized at location A. LINER
[2024-03-07 12:22] VITALS: BP 142/87; PULSE 78; RESP 18; TEMP 36.8; O2SAT 100
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
[2024-03-07] MEDS: ORPHENADRINE CITRATE 100 MG TABLET.ER PO (14:14)
[2024-03-07] MEDS: ACETAMINOPHEN 500 MG TABLET 1000 MG PO (14:14)
[2024-03-07 15:07] VITALS: BP 133/95; PULSE 74; RESP 20; O2SAT 100
== END 2024-03-07 15:17 | disposition home or self-care (01) ==
PROVIDERS: Emergency Provider Physician Assistant; PCP Family Medicine
DX: M62.830 Muscle spasm of back (principal); M79.7 Fibromyalgia; Z90.710 Acquired absence of both cervix and uterus; Z90.79 Acquired absence of other genital organ(s); Z90.721 Acquired absence of ovaries, unilateral; Z79.899 Other long term (current) drug therapy; Z79.85 Long-term (current) use of injectable non-insulin antidiabetic drugs; X58.XXXA Exposure to other specified factors, initial encounter; Y93.23 Activity, snow (alpine) (downhill) skiing, snowboarding, sledding, tobogganing and snow tubing; M47.814 Spondylosis without myelopathy or radiculopathy, thoracic region; M47.816 Spondylosis without myelopathy or radiculopathy, lumbar region
CPT/HCPCS: 72125; 72128; 72131; 99284; A9270

== ENCOUNTER 2024-07-18 07:35 | Outpatient (CLI) | payer BC, SELFPAY ==
[2024-07-18 09:11] LABS: Folic Acid 7.3 ng/mL (2.76->20)
== END 2024-07-18 07:36 | disposition home or self-care (01) ==
LOC: ANHLAB 07:37
PROVIDERS: Visit Provider Psychiatry & Neurology Neurology
DX: G43.409 Hemiplegic migraine, not intractable, without status migrainosus (principal)
CPT/HCPCS: 36415; 82607; 82746; 83921